=== PATIENT | male | born 1985 | race Caucasian/White ===

== ENCOUNTER 2024-09-07 09:10 | Outpatient (OUT) | payer BC, SELFPAY ==
--- NOTE | 2024-09-07 09:20 | XR_ITS ---
The [address] [address] Patient Name: RODY PAGE MRN: [id number] date: 1985 Sex: M Assigned Patient Location: [facility] Current Patient Location: [facility] Accession/Order Number: [id number] Exam Date: 09/07/2024 11:50 Report Date: 09/07/2024 12:23 At the request of: IRENA PANTOJA Procedure: XR abdomen 1V SINGLE VIEW ABDOMEN COMPARISON: CT 05/14/2019 CLINICAL DATA: Right flank pain. History of kidney stones. Supine views of the abdomen and pelvis were obtained. There is air within stomach. There is also air within small and large bowel loops and a small amount of colonic stool. Both kidneys are partially obscured, greater on the left. No obvious radiopaque renal stones are visualized. There is a 2 mm calcification within the low pelvis to the right of midline. A phlebolith is possible however a stone is difficult to completely exclude. There are no soft tissue masses. The bony structures are intact. There is subtle reverse S-shaped scoliotic curvature. XR/XR abdomen 1V IMPRESSION: NO OBVIOUS RADIOPAQUE RENAL STONES. EQUIVOCAL DISTAL RIGHT URETERAL STONE VERSUS PHLEBOLITH. Impression dictated by: Irena Vergara M.D.09/07/2024 12:23 PM Dictation Location: [place] [address] Electronically authenticated by: [id number] Y Date: 09/07/2024 12:23
== END 2024-09-07 09:11 | disposition home or self-care (01) ==
PROVIDERS: PCP Internal Medicine; Visit Provider Physician Assistant
DX: R10.9 Unspecified abdominal pain (principal); Z87.442 Personal history of urinary calculi
CPT/HCPCS: 74018